=== PATIENT | female | born 1960 | race Caucasian/White ===

== ENCOUNTER → 2016-12-01 | Day surgery (SDC) | payer OTHER ==
[~2016-12-01] VITALS: Ht 167.6 cm; Wt 65.8 kg
[~2016-12-01] MED LIST: ALPR1TAB7 PO; CHOL5000 PO; COLC0.6C3 PO; LEVO50TA6 PO; LIOT5TAB3 PO; OMEP20CA11 PO; Sodium Chloride LOK Flush 10 mL Syringe IV PRN; fentaNYL-PF 50 mCg/mL 2 mL Inj IVPUSH PRN
[2016-12-01 08:49] VITALS: BP 100/62; PULSE 78; RESP 16; O2SAT 100
[2016-12-01] MEDS: 0.9% Sodium Chloride 1,000 ML IV SCH ×2 (09:16→09:57)
[2016-12-01 10:03] VITALS: BP 92/55; PULSE 78; RESP 16; O2SAT 97
[2016-12-01 10:13] VITALS: BP 87/61; PULSE 72; RESP 16; O2SAT 96
[2016-12-01 10:19] VITALS: BP 113/67; PULSE 73; RESP 16; O2SAT 97
--- NOTE | 2016-12-01 11:01 | ENDO ---
[address] [address] ENDOSCOPY PROCEDURE PATIENT: SHALA REYES : 1960 MR#: [id number] ADMIT: 12/01/2016 JOB ID: [id number] PRIMARY PROVIDER: Teena Gonzalez PA-C PROCEDURE: Esophagogastroduodenoscopy with biopsies. INDICATIONS: GERD has come on in the context of about four months of Boniva therapy. She is currently not using any PPI, and will occasionally use Rolaids. EGD is pursued. EQUIPMENT: [id number]-J. SEDATION: 6 mg Versed and 125 mcg fentanyl. COMPLICATIONS: None identified. PROCEDURE INFORMATION: After the risks and benefits were explained, written and verbal informed consent was obtained. The patient was brought into the endoscopy suite and placed into the left lateral decubitus position. Sedation was achieved as above. The scope was introduced into the mouth through the bite block, and advanced to the second portion of the duodenum. The scope was slowly withdrawn to carefully examine the mucosa for any defects or lesions. Retroflexed views were accomplished in the stomach. The stomach was decompressed, the scope removed from the patient who tolerated the procedure well. FINDINGS: 1. Duodenum: No pathology identified from the bulb through to the second portion. 2. Stomach: No outlet obstruction. No mass lesions. The patient had scattered erosive features in the antral region. One of these was targeted for biopsy and for exclusion of Helicobacter infection. Otherwise, retroflexed views of the LES disclosed a small sliding hiatal hernia. 3. Esophagus: The squamocolumnar junction correlated with the top of the gastric folds. The Z line wondered in an irregular fashion, but I did not see anything that appeared classic for Yousif's and certainly no active inflammation or ulceration present. The GE junction was at 41 cm from the incisors. The remainder of the esophagus appeared unremarkable. ENDOSCOPIC DIAGNOSIS: 1. Small sliding hiatal hernia. 2. Erosive gastropathy. RECOMMENDATIONS: 1. Await histopathology. 2. Minimize NSAIDs as able. 3. If Helicobacter is found, it will need to be eradicated with standard triple therapy. 4. Continue anti-reflux therapy as necessary to manage symptoms. 5. There is no evidence of esophageal ulceration or stricturing. However, using a medication like Boniva in the future should be done with great caution and plenty of fluids, remaining upright for at least a full hour after its consumption.
--- NOTE | 2016-12-03 12:45 | PATH ---
SURGICAL PATHOLOGY Attending Physician:Cynthia Ontiveros CASE STATUS: Signed Out PATIENT NAME: SHALA REYES. PID: [id number] : 1960 DATE COLLECTED:12/01/2016 15:29 SPECIMEN: Stomach, Antrum, Biopsy CLINICAL HISTORY: GERD, ANTRAL EROSIONS 1). ANTRAL BIOPSY FINAL DIAGNOSIS: 1.ANTRAL BIOPSY: GASTRIC ANTRAL-TYPE MUCOSA WITH CHRONIC GASTRITIS. POSITIVE FOR INTESTINAL METAPLASIA. Negative for neutrophilic inflammation. Negative for Helicobacter pylori microorganisms by immunohistochemical stain. Negative for dysplasia and malignancy. ICD10 K29.7 GROSS DESCRIPTION: The specimen is received in one formalin filled container labeled with the patient's name, sublabeled "antral" and consists of a 0.2 x 0.2 x 0.2 CM portion of tissue which is entirely submitted in one cassette. 12/01/2016DC MICRO DESCRIPTION: An immunohistochemical stain was performed to evaluate for Helicobacter pylori microorganisms. The control stain showed appropriate reactivity. This test was developed and its performance characteristics determined by [employer] It has not been cleared or approved by the [place]. Food and Drug Administration. The FDA has determined that such clearance or approval is not necessary. This test is used for clinical purposes. It should not be regarded as investigational or for research. ICD-9 CODES: CPT CODES: 1: 30827, 05551 Electronically Signed Out Arsh Galloway MD Formerly [facility] Pathology [facility] [address], [place] [address] Technical component performed at [facility], [address], [place], [address]
== END | disposition home or self-care (01) ==
LOC: END 00:01
PROVIDERS: ATTEND Internal Medicine Gastroenterology
DX: K29.50 Unspecified chronic gastritis without bleeding (principal); K44.9 Diaphragmatic hernia without obstruction or gangrene; K31.9 Disease of stomach and duodenum, unspecified; K21.9 Gastro-esophageal reflux disease without esophagitis; M81.0 Age-related osteoporosis without current pathological fracture; Z85.72 Personal history of non-Hodgkin lymphomas; Z87.891 Personal history of nicotine dependence
CPT/HCPCS: 43239; 99152; 99153; J2250; J3010; J7030